=== PATIENT | male | born 1975 | race Caucasian/White ===

== ENCOUNTER 2019-03-01 11:13 | Emergency (ER) | payer BC ==
[2019-03-01 11:23] VITALS: BP 128/83
--- NOTE | 2019-03-01 12:08 | UC ---
Hand/Wrist HPI - HPI Summary HPI Summary: 43 -year-old male who jammed his left pinky finger 6 weeks ago when he was throwing wood into a box and he was in the process of making maple syrup. He did not have it seen at the time however and has continued to be painful and swollen. He does play the guitar frequently and also is involved in a local festival. - History Of Current Complaint Chief Complaint: UCUpperExtremity Stated Complaint: LEFT PINKIE INJURY Time Seen by Provider: 03/01/19 11:29 Hx Obtained From: Patient ?: No Onset/Duration: Sudden Onset - Sudden onset when he threw a piece of wood into a fire box jamming his left pinky finger. Severity Initially: Moderate Severity Currently: Mild Pain Intensity: 2 Character Of Pain: Dull, Aching Aggravating Factor(s): Movement, Flexion Alleviating Factor(s): Nothing Associated Signs And Symptoms: Positive: Swelling - Mild swelling at the PIP joint. Related History: Dominant Hand Right - Allergies/Home Medications Allergies/Adverse Reactions: Allergies Allergy/AdvReac Type Severity Reaction Status Date / Time No Known Allergies Allergy Verified 03/01/19 11:23 PMH/Surg Hx/FS Hx/Imm Hx Previously Healthy: Yes - Surgical History Surgical History: Yes Surgery Procedure, Year, and Place: WISDOM TEETH - Family History Known Family History: Positive: Non-Contributory - Social History Occupation: Employed Part-time Alcohol Use: None Substance Use Type: Marijuana Smoking Status (MU): Light Every Day Tobacco Smoker Type: Smokeless Tobacco Review of Systems All Other Systems Reviewed And Are Negative: Yes Motor: Positive: Negative Neurovascular: Positive: Negative Musculoskeletal: Positive: Other: - Mild swelling at the PIP joint. Neurological: Positive: Negative Is Patient Immunocompromised?: No Physical Exam Triage Information Reviewed: Yes Appearance: Well-Appearing, No Pain Distress, Well-Nourished Vital Signs: Initial Vital Signs Temp 98.8 F 03/01/19 11:18 Pulse 76 03/01/19 11:18 Resp 14 03/01/19 11:18 BP 128/83 03/01/19 11:18 Pulse Ox 99 03/01/19 11:18 Vital Signs Reviewed: Yes Musculoskeletal: Positive: Strength Intact, ROM Intact, Other: - Mild swelling at the PIP joint, no deformity, bruising or erythema is noted. Good peripheral pulses neuro sensation and capillary refill. Good finger strength with flexion and extension against resistance. Neurological: Positive: Alert, Muscle Tone Normal Psychological Exam: Normal Hand/Wrist Course/Dx - Course Course Of Treatment: Finger x-ray: FINDINGS: The bones are normal alignment. Joint spaces appear maintained. No fracture is seen. IMPRESSION: NO EVIDENCE FOR FRACTURE, IF THE PATIENT'S SYMPTOMS PERSIST RECOMMEND FOLLOW-UP IMAGING. Adam tape was applied. The patient's to follow-up with the hand specialist if he has continued pain and swelling over the next week. - Differential Dx/Diagnosis Provider Diagnosis: Sprain of left little finger Discharge - Sign-Out/Discharge Documenting (check all that apply): Patient Departure All imaging exams completed and their final reports reviewed: Yes - Discharge Plan Condition: Fair Disposition: HOME Patient Education Materials: Finger Sprain (ED) Referrals: Joanie Mariscal MD [Primary Care Provider] - Justice Jimenez MD [Medical Doctor] - Shannon Thompson MD [Medical Doctor] - Additional Instructions: Adam tape over the next week, elevate as much as possible. If you continue to have pain and swelling then follow-up with the hand specialists given. - Billing Disposition and Condition Condition: FAIR Disposition: Home - Attestation Statements Provider Attestation: I was available for consult. This patient was seen by the ADRIANE. The patient was not presented to, seen by, or examined by me. -Junaid
== END 2019-03-01 12:09 | disposition home or self-care (01) ==
LOC: UCEAST 11:13
DX: S63.617A Unspecified sprain of left little finger, initial encounter (principal); W23.0XXA Caught, crushed, jammed, or pinched between moving objects, initial encounter; Y92.9 Unspecified place or not applicable; F17.290 Nicotine dependence, other tobacco product, uncomplicated
CPT/HCPCS: 73140; 99211; G0463